=== PATIENT | female | born 1955 | race Caucasian/White ===

== ENCOUNTER 2016-11-15 12:30 | Inpatient (IN) | payer MEDICAID ==
[~2016-11-15] VITALS: Ht 162.6 cm; Wt 109.3 kg
[~2016-11-15 12:30] MED LIST: ARIP10TA8 PO; ASPI-556 PO; BENA40TA67 PO; CLON.5 PO; CLOZ100T31 PO; CLOZ50TA PO; COMBIH IH; DIVA500T52 PO; DOCU250C14 PO; FLUT1DIS3 IH; FURO40 PO; LANS30CA55 PO; METF500T4 PO; MULT1TAB11 PO; POTA10TA10 PO; RISP3 PO; SIMV-261 PO; TOPI100T37 PO; VENL-67 PO
[2016-11-15] MEDS ORDERED: HUMLIS7525 SQ (12:49)
[2016-11-15] MEDS ORDERED: INSU100V SQ (12:49)
[2016-11-15] MEDS ORDERED: PROZ10 PO (12:49)
[2016-11-15] MEDS ORDERED: ATOR10TA84 PO (12:49)
[2016-11-15] MEDS ORDERED: LISI-661 PO (12:49)
[2016-11-15 13:02] LABS: BASOPHILS % (AUTO) 0.4 % (0.0-2.0); EOSINOPHILS % (AUTO) 0.4 % (1.0-6.0); HEMATOCRIT 40.9 % (36-46); HEMOGLOBIN 13.7 g/dL (12.0-16.0); LYMPHOCYTES # (AUTO) 3.1 K/uL (1.0-4.8); LYMPHOCYTES % (AUTO) 28.3 % (22.0-44.0); MEAN CORPUSCULAR HEMOGLOBIN 29.8 pg (26.0-34.0); MEAN CORPUSCULAR HGB CONC 33.5 G/dL (31.0-37.0); MEAN CORPUSCULAR VOLUME 89 fL (80-100); MONOCYTES % (AUTO) 9.2 % (2.0-9.0); NEUTROPHILS # (AUTO) 6.8 K/uL (1.8-7.7); NEUTROPHILS % (AUTO) 61.7 % (40.0-70.0); PLATELET COUNT (AUTO) 312 K/uL (150-450); RED BLOOD CELL COUNT(AUTO) 4.61 MIL/uL (4.00-5.20); RED CELL DISTRIBUTION WIDTH 14.7 % (11.5-14.5)
[2016-11-15 13:15] LABS: ANION GAP 12 mmol/L (8-16); CALCIUM, TOTAL 9.3 mg/dL (8.8-10.5); CARBON DIOXIDE 23 mmol/L (22-29); CHLORIDE 108 mmol/L (98-107); CREATININE 0.89 mg/dL (0.60-1.30); GLOMERULAR FILTR. RATE CALC > 60 mL/min (>60); POTASSIUM 3.7 mmol/L (3.5-5.1); SODIUM SERUM 143 mmol/L (136-145); UREA NITROGEN, BLOOD 10 mg/dL (7-18)
[2016-11-15 13:20] LABS: ALANINE AMINOTRANSFERASE 23 U/L (12-78); ALBUMIN 3.9 g/dL (3.4-5.0); ASPARTATE AMINOTRANSFERASE 15 U/L (15-37); BILIRUBIN,TOTAL 0.2 mg/dL (0.1-1.0); TOTAL PROTEIN, SERUM 7.5 g/dL (6.4-8.2)
[2016-11-15] MEDS ORDERED: HALOPERIDOL 5 MG TABLET PO PRN (14:15)
[2016-11-15] MEDS ORDERED: ZOLPIDEM TARTRATE 10 MG TABLET PO PRN (14:15)
[2016-11-15] MEDS ORDERED: LORazepam 2 MG TABLET PO PRN (14:15)
[2016-11-15] MEDS ORDERED: DiphenhydrAMINE HCL 50 MG/ML VIAL IM ONE (14:30)
[2016-11-15] MEDS ORDERED: LORazepam 2 MG/ML VIAL IM ONE (14:30)
[2016-11-15] MEDS ORDERED: HALOPERIDOL LACTATE 5 MG/ML VIAL IM ONE (14:30)
[2016-11-15] MEDS: CloZAPine 25 MG TABLET PO SCH (16:37)
[2016-11-15 17:00] VITALS: BP 129/84
[2016-11-15] MEDS ORDERED: DEXTROSE 50%-WATER 25 GM/50 ML SYRINGE IVP PRN (17:30)
[2016-11-15 18:07] LABS: GLUCOSE COMMENT 1 Received Meds; GLUCOSE,POINT OF CARE 83 MG/DL (70-110)
[2016-11-15] MEDS: ATORVASTATIN CALCIUM 10 MG TABLET PO SCH (20:28)
[2016-11-15] MEDS: TOPIRAMATE 100 MG TABLET PO SCH (20:28)
[2016-11-15] MEDS: CloZAPine 100 MG TABLET PO SCH (20:28)
[2016-11-15 20:57] LABS: GLUCOSE COMMENT 1 Received Meds; GLUCOSE,POINT OF CARE 361 MG/DL (70-110)
[2016-11-15 20:57] LABS: GLUCOSE,POINT OF CARE 121 MG/DL (70-110)
[2016-11-15] MEDS ORDERED: TOPIRAMATE 100 MG TABLET PO SCH (21:00)
[2016-11-15] MEDS ORDERED: CloZAPine 100 MG TABLET PO SCH (21:00)
[2016-11-16 06:02] LABS: GLUCOSE,POINT OF CARE 105 MG/DL (70-110)
[2016-11-16 06:03] LABS: CHOL/HDL RATIO 2.8 (3.9-5.7); THYROID STIMULATING HORMONE 2.09 uIU/mL (0.36-3.74)
[2016-11-16 08:30] VITALS: BP 132/88
[2016-11-16] MEDS ORDERED: ARIPiprazole 10 MG TABLET PO SCH (09:00)
[2016-11-16] MEDS: CloZAPine 25 MG TABLET PO SCH ×2 (09:03→17:14)
[2016-11-16] MEDS: TOPIRAMATE 100 MG TABLET PO SCH ×2 (09:04→17:14)
[2016-11-16] MEDS: FLUoxetine HCL 10 MG CAPSULE PO SCH (09:04)
[2016-11-16] MEDS: ARIPiprazole 10 MG TABLET PO SCH ×2 (09:05→17:14)
[2016-11-16] MEDS: LISINOPRIL 10 MG TABLET PO SCH (09:05)
[2016-11-16] MEDS: NYSTATIN 15 GM POWDER BOTTLE TP SCH (09:06)
[2016-11-16 11:37] LABS: GLUCOSE,POINT OF CARE 152 MG/DL (70-110)
[2016-11-16] MEDS: INSULIN ASPART 100 UNITS/ML SQ PRN (11:37)
[2016-11-16 17:17] LABS: GLUCOSE,POINT OF CARE 91 MG/DL (70-110)
[2016-11-16 19:42] VITALS: BP 114/78
[2016-11-16] MEDS: CloZAPine 100 MG TABLET PO SCH (21:20)
[2016-11-16] MEDS: ATORVASTATIN CALCIUM 10 MG TABLET PO SCH (21:20)
[2016-11-16 21:27] LABS: GLUCOSE,POINT OF CARE 135 MG/DL (70-110)
[2016-11-17 03:58] VITALS: BP 128/88
[2016-11-17 06:08] LABS: GLUCOSE,POINT OF CARE 114 MG/DL (70-110)
[2016-11-17] MEDS: NYSTATIN 15 GM POWDER BOTTLE TP SCH (09:00)
[2016-11-17] MEDS: FLUoxetine HCL 10 MG CAPSULE PO SCH (09:18)
[2016-11-17] MEDS: TOPIRAMATE 100 MG TABLET PO SCH ×2 (09:18→17:10)
[2016-11-17] MEDS: ARIPiprazole 10 MG TABLET PO SCH ×2 (09:18→17:09)
[2016-11-17] MEDS: CloZAPine 25 MG TABLET PO SCH ×2 (09:20→17:10)
[2016-11-17] MEDS: LISINOPRIL 10 MG TABLET PO SCH (09:20)
[2016-11-17 10:10] VITALS: BP 115/91
[2016-11-17 11:37] LABS: GLUCOSE,POINT OF CARE 118 MG/DL (70-110)
[2016-11-17 16:40] VITALS: BP 117/77
[2016-11-17 17:17] LABS: GLUCOSE,POINT OF CARE 94 MG/DL (70-110)
[2016-11-17] MEDS: CloZAPine 100 MG TABLET PO SCH (21:15)
[2016-11-17] MEDS: ATORVASTATIN CALCIUM 10 MG TABLET PO SCH (21:15)
[2016-11-18 05:07] LABS: HEPATITIS Bs ANTIGEN SCREEN P Negative (Negative); HEPATITIS C AB SCREEN 0.1 s/co ratio (0.0-0.9)
[2016-11-18] MEDS: INSULIN ASPART 100 UNITS/ML SQ PRN (06:36)
[2016-11-18] MEDS: NYSTATIN 15 GM POWDER BOTTLE TP SCH (09:00)
[2016-11-18 10:01] LABS: GLUCOSE,POINT OF CARE 94 MG/DL (70-110)
[2016-11-18 10:05] VITALS: BP 126/88
[2016-11-18 10:12] LABS: GLUCOSE,POINT OF CARE 99 MG/DL (70-110)
[2016-11-18] MEDS: TOPIRAMATE 100 MG TABLET PO SCH ×2 (10:24→16:35)
[2016-11-18] MEDS: ARIPiprazole 10 MG TABLET PO SCH ×2 (10:24→16:35)
[2016-11-18] MEDS: LISINOPRIL 10 MG TABLET PO SCH (10:24)
[2016-11-18] MEDS: FLUoxetine HCL 10 MG CAPSULE PO SCH (10:24)
[2016-11-18] MEDS: CloZAPine 25 MG TABLET PO SCH ×2 (10:24→16:35)
[2016-11-18 11:27] LABS: GLUCOSE,POINT OF CARE 100 MG/DL (70-110)
[2016-11-18 17:10] VITALS: BP 124/64
[2016-11-18] MEDS: ATORVASTATIN CALCIUM 10 MG TABLET PO SCH (20:25)
[2016-11-18] MEDS: CloZAPine 100 MG TABLET PO SCH (20:25)
[2016-11-19 04:32] VITALS: BP 126/83
[2016-11-19 06:08] LABS: GLUCOSE,POINT OF CARE 131 MG/DL (70-110)
[2016-11-19 08:50] VITALS: BP 125/84
[2016-11-19] MEDS: LISINOPRIL 10 MG TABLET PO SCH (10:14)
[2016-11-19] MEDS: CloZAPine 25 MG TABLET PO SCH ×2 (10:14→17:41)
[2016-11-19] MEDS: ARIPiprazole 10 MG TABLET PO SCH ×2 (10:14→17:41)
[2016-11-19] MEDS: FLUoxetine HCL 10 MG CAPSULE PO SCH (10:14)
[2016-11-19] MEDS: TOPIRAMATE 100 MG TABLET PO SCH ×2 (10:14→17:41)
[2016-11-19] MEDS ORDERED: CLOZ25TA4 PO (11:02)
[2016-11-19] MEDS: NYSTATIN 15 GM POWDER BOTTLE TP SCH (11:47)
[2016-11-19 16:41] VITALS: BP 122/84
[2016-11-19] MEDS: ATORVASTATIN CALCIUM 10 MG TABLET PO SCH (20:59)
[2016-11-19] MEDS: CloZAPine 100 MG TABLET PO SCH (20:59)
[2016-11-20 05:46] LABS: GLUCOSE,POINT OF CARE 111 MG/DL (70-110)
[2016-11-20] MEDS: INSULIN ASPART 100 UNITS/ML SQ PRN (06:38)
[2016-11-20 08:15] VITALS: BP 129/90
[2016-11-20] MEDS: TOPIRAMATE 100 MG TABLET PO SCH ×2 (08:51→16:51)
[2016-11-20] MEDS: ARIPiprazole 10 MG TABLET PO SCH ×2 (08:51→16:50)
[2016-11-20] MEDS: CloZAPine 25 MG TABLET PO SCH ×2 (08:51→16:50)
[2016-11-20] MEDS: FLUoxetine HCL 10 MG CAPSULE PO SCH (08:51)
[2016-11-20] MEDS: LISINOPRIL 10 MG TABLET PO SCH (08:51)
[2016-11-20] MEDS: NYSTATIN 15 GM POWDER BOTTLE TP SCH (08:59)
[2016-11-20 16:31] VITALS: BP 129/77
[2016-11-20] MEDS: ATORVASTATIN CALCIUM 10 MG TABLET PO SCH (20:25)
[2016-11-20] MEDS: CloZAPine 100 MG TABLET PO SCH (20:25)
[2016-11-21 03:20] VITALS: BP 123/73
[2016-11-21 06:08] LABS: GLUCOSE,POINT OF CARE 104 MG/DL (70-110)
[2016-11-21] MEDS: NYSTATIN 15 GM POWDER BOTTLE TP SCH (09:00)
[2016-11-21] MEDS: TOPIRAMATE 100 MG TABLET PO SCH (09:22)
[2016-11-21] MEDS: CloZAPine 25 MG TABLET PO SCH (09:22)
[2016-11-21] MEDS: ARIPiprazole 10 MG TABLET PO SCH (09:22)
[2016-11-21] MEDS: FLUoxetine HCL 10 MG CAPSULE PO SCH (09:22)
[2016-11-21] MEDS: LISINOPRIL 10 MG TABLET PO SCH (09:23)
[2016-11-21 09:33] VITALS: BP 126/89
[2016-11-21] MEDS ORDERED: NYST30CR9 TP (11:51)
== END 2016-11-21 14:38 | disposition home or self-care (01) | DRG 750 ==
LOC: EMS 12:31 → 3EI 14:54
PROVIDERS: ADMIT Psychiatry & Neurology Child & Adolescent Psychiatry; ATTEND Psychiatry & Neurology Child & Adolescent Psychiatry
DX: F25.0 Schizoaffective disorder, bipolar type (principal); R45.851 Suicidal ideations; E11.9 Type 2 diabetes mellitus without complications; I10 Essential (primary) hypertension; E78.5 Hyperlipidemia, unspecified; F32.9 Major depressive disorder, single episode, unspecified; R45.1 Restlessness and agitation; F17.200 Nicotine dependence, unspecified, uncomplicated; Z79.82 Long term (current) use of aspirin; Z79.4 Long term (current) use of insulin; Z79.899 Other long term (current) drug therapy
CPT/HCPCS: 80074; 82306; 82607; 82746; 82962; 83036; 84439; 84443; 87081; 99285; G0480